=== PATIENT | male | born 1950 | race Caucasian/White ===

== ENCOUNTER 2020-05-20 14:28 | Inpatient (IN) | payer MEDICARE ==
[~2020-05-20] VITALS: Ht 182.9 cm; Wt 82.8 kg
--- NOTE | 2020-05-20 14:28 | NUR ---
PT SOFY FROM [facility] C/O LOW 02 SATS. PT IS AAOX2, NOT IN RESPIRATROY DISTRESS, O2 SAT 97% AT 2LPM. HOOKED TO GAS SYSTEM OPERATOR, KEPT RESTED AND COMFORTABLE. WILL CONTINUE TO MONITOR.
--- NOTE | 2020-05-20 14:55 | NUR ---
PT SEEN AND EXAMINED BY .
[2020-05-20] MEDS ORDERED: ALBUTEROL FS 2.5 MG/3 ML VIAL.NEB NEB ONE (15:00)
[2020-05-20] MEDS ORDERED: predniSONE 20 MG TABLET PO ONE (15:00)
[2020-05-20] MEDS ORDERED: IV NS 0.9% 500 ML BAG IV ONE (15:00)
--- NOTE | 2020-05-20 15:00 | NUR ---
IV LINE ESTABLISHED BLOOD DRAWN AND SENT TO LAB.
[2020-05-20] MEDS ORDERED: ALBUTEROL FS 2.5 MG/3 ML VIAL.NEB ONE (15:02)
--- NOTE | 2020-05-20 15:10 | NUR ---
RT AT BEDSIDE FOR BREATHING TX.
[2020-05-20] MEDS ORDERED: predniSONE 20 MG TABLET ONE (15:13)
[2020-05-20 15:14] LABS: BASOPHILS % (AUTO) 1.3 % (0.0-2.0); EOSINOPHILS % (AUTO) 0.3 % (0.0-6.0); HEMATOCRIT 39 % (39-51); HEMOGLOBIN 12.9 g/dL (13.5-17.5); LYMPHOCYTES # (AUTO) 0.4 /CMM (0.8-4.8); LYMPHOCYTES % (AUTO) 19.6 % (20.0-44.0); MEAN CORPUSCULAR HGB CONC 33 g/dl (31.0-36.0); MEAN CORPUSCULAR VOLUME 98 fL (80-96); MONOCYTES # (AUTO) 0.2 /CMM (0.1-1.30); MONOCYTES % (AUTO) 10.3 % (2.0-12.0); NEUTROPHILS # (AUTO) 1.6 /CMM (1.8-8.9); NEUTROPHILS % (AUTO) 68.5 % (43.0-81.0); PLATELET COUNT (AUTO) 230 /CMM (150-450); WHITE BLOOD COUNT (AUTO) 2.3 K/uL (4.3-11.0)
--- NOTE | 2020-05-20 15:20 | NUR ---
HOTEL MAINTENANCE TECHNICIAN AT BEDSIDE FOR XRAY.
[2020-05-20 15:22] LABS: CALCIUM, SERUM 8.4 mg/dL (8.5-10.1); CARBON DIOXIDE 28 mmol/L (21-32); CHLORIDE 97 mmol/L (98-107); CREATININE 1.8 mg/dL (0.6-1.3); GLUCOSE 91 mg/dL (74-106); POTASSIUM 3.9 mmol/L (3.5-5.1); SODIUM SERUM 133 mmol/L (136-145); UREA NITROGEN, BLOOD 34 mg/dL (7-18)
[2020-05-20 15:27] LABS: ALANINE AMINOTRANSFERASE 87 U/L (12-78); ALBUMIN 2.9 g/dL (3.4-5.0); ALKALINE PHOSPHATASE 83 U/L (46-116); ASPARTATE AMINOTRANSFERASE 98 U/L (15-37); BILIRUBIN,DIRECT 0.4 mg/dL (0.0-0.2); BILIRUBIN,TOTAL 0.7 mg/dL (0.2-1.0); LIPASE 251 U/L (73-393); TOTAL PROTEIN, SERUM 7.4 g/dL (6.4-8.2)
[2020-05-20] MEDS ORDERED: FINA5TAB11 PO (15:41)
[2020-05-20] MEDS ORDERED: BUPR-51 PO (15:41)
[2020-05-20] MEDS ORDERED: MAGN400O6 PO (15:41)
[2020-05-20] MEDS ORDERED: ZINC220C6 PO (15:41)
[2020-05-20] MEDS ORDERED: APIX5TAB4 PO (15:41)
[2020-05-20] MEDS ORDERED: ALBU8.5H8 IH (15:41)
[2020-05-20] MEDS ORDERED: BISA10SU11 RC (15:41)
[2020-05-20] MEDS ORDERED: BUDE10.2 IH (15:41)
[2020-05-20] MEDS ORDERED: QUET50TA PO (15:41)
[2020-05-20] MEDS ORDERED: ASCO500C17 PO (15:41)
[2020-05-20] MEDS ORDERED: THIA100T88 PO (15:41)
[2020-05-20] MEDS ORDERED: NA P133E RC (15:41)
[2020-05-20] MEDS ORDERED: ACET325T53 PO (15:41)
--- NOTE | 2020-05-20 15:54 | NUR ---
CALLED PHARMACU FOR IV ANTIBIOTIC.
--- NOTE | 2020-05-20 15:59 | NUR ---
PAGED [facility].
[2020-05-20] MEDS ORDERED: CEFEPIME 1 GM in IV D5W 50 ML IV ONE (16:00)
[2020-05-20] MEDS ORDERED: AZITHROMYCIN 500 MG in IV D5W 250 ML IV ONE (16:00)
--- NOTE | 2020-05-20 16:04 | NUR ---
CALLED NURSING SUP FOR TELE BED.
[2020-05-20] MEDS ORDERED: ACETAMINOPHEN 325 MG TABLET PO PRN (16:30)
[2020-05-20] MEDS ORDERED: Z GUARD REMEDY 2 OZ OINT TP PRN (16:30)
[2020-05-20] MEDS ORDERED: MAGNESIUM HYDROXIDE 30 ML UDC PO PRN ×2 (16:30)
[2020-05-20] MEDS ORDERED: ONDANSETRON HCL/PF 4 MG/2 ML VIAL IVP PRN (16:30)
[2020-05-20] MEDS ORDERED: MAG HYDROX/AL HYDROX/SIMETH 30 ML UDC PO PRN (16:30)
[2020-05-20] MEDS ORDERED: BISACODYL SUPP (10 MG) 10 MG/SUPP.RECT SUPP.RECT RC PRN (16:30)
[2020-05-20] MEDS ORDERED: HYDROCODONE/APAP 5/325MG TABLET PO PRN (16:30)
[2020-05-20] MEDS ORDERED: NA PHOS,M-B/NA PHOS,DI-BA 1 EA ENEMA RC PRN (16:30)
--- NOTE | 2020-05-20 17:33 | NUR ---
REPORT GIVEN TO NADEEM OLIVA FOR JOSEFINA.
[2020-05-20] MEDS ORDERED: ALBUTEROL FS 2.5 MG/3 ML VIAL.NEB IH PRN (18:00)
[2020-05-20] MEDS ORDERED: ZOSYN IVPB 3.375 G in IV D5W 50ml IV ONE (18:15)
[2020-05-20 18:20] VITALS: BP 109/78
--- NOTE | 2020-05-20 18:20 | NUR ---
ON CAR SUPERVISOR NOTES PATIENT ADMITTED FROM ER, REPORT GIVEN BY VON SILVER. NO ACUTE DISTRESS NOTES. BREATHING UNLABORED. NO SOB NOTED. ALERT ORIENTED X 3. ORIENTED TO THE ROOM . SAFETY MEASURES IN PLACE. SHOW HOW TO USE CALL LIGHT, PLACED WITHIN REACH. PLACED ON FIBERGLASS DOWEL DRAWING OPERATOR SINUS RHYTHM. NEEDS ATTENDED AND ANTICIPATED. WILL CONTINUE TO MONITOR ACCORDINGLY.
[2020-05-20] MEDS ORDERED: ALBUTEROL SULFATE 8 GM HFA.AER.AD IH PRN (18:30)
--- NOTE | 2020-05-20 18:55 | NUR ---
ASSOCIATE PROFESSOR OF COUNSELING NOTES PATIENT IN BED ALERT ORIENTED X 3 . NO ACUTE DISTRESS NOTED. BREATHING UNLABORED. NO SOB NOTED .IV ACCESS PATENT AND INTACT, NO REDNESS, NO SWELLING NOTED. NEEDS ATTENDED AND ANTICIPATED. SAFETY MEASURES IN PLACE. CALL LIGHT WITHIN REACH. WILL ENDORSE TO NIGHT NURSE FOR CONTINUITY OF CARE AND ADMISSION..
[2020-05-20] MEDS: APIXABAN 5 MG TABLET PO SCH (19:00)
[2020-05-20] MEDS: DEXAMETHASONE SOD PHOSPHATE 10 MG/ML VIAL IJ SCH (19:00)
--- NOTE | 2020-05-20 19:00 | NUR ---
BUSINESS QUALITY ASSURANCE ANALYST NOTES ZOSYN NOT AVAILABLE ON THE FLOOR YET, CALLED PHARMACY SPOKE WITH [facility], THEY WILL SEND MEDICATION. WILL ENDORSE TO NIGHT NURSE FOR ADMINISTRATION
--- NOTE | 2020-05-20 19:35 | NUR ---
TIN CAN LABORER: RECEIVED PATIENT Patient in bed, sleeping, arouses easily, respond verbally. Afib controlled HR 64 in the Tele monitor. Tolerating room air. Skin checked done, fern elbow skin tear, coccyx blanchable redness. Fall; skin precaution maintained.
[2020-05-20] MEDS: QUETIAPINE FUMARATE 25 MG TABLET PO SCH (21:49)
--- NOTE | 2020-05-20 21:49 | NUR ---
REFUSED SEROQUEL Spit out due medication Seroquel, declined education.
[2020-05-20 22:46] VITALS: BP 97/56
[2020-05-21] MEDS: PIPERACILLIN /TAZOBACTAM 3.375 G in IV D5W 100 ML IV SCH ×4 (00:38→22:44)
[2020-05-21 02:18] VITALS: BP 90/53
--- NOTE | 2020-05-21 03:57 | NUR ---
VTE SCORE 4 Chemical prophylaxis reviewed with MELECIO Gaytan with no new orders at this time, per MELECIO Gaytan patient is already on anticoagulant Eliquis.
[2020-05-21 05:10] VITALS: BP 110/65
[2020-05-21 05:11] VITALS: BP 110/65
--- NOTE | 2020-05-21 06:36 | NUR ---
PANCAKE PROFESSIONAL: END OF SHIFT REPORT Patient in bed, A/O x1 to self only with confusion. Afib controlled HR 61 in the Tele monitor. On IV Zosyn, afebrile. Patient is uncooperative with hygiene, skin precaution maintained. Awaits wound consult. Covid PCR pending result. Will endorse to oncoming RN.
[2020-05-21 07:27] LABS: BASOPHILS % (AUTO) 0.4 % (0.0-2.0); EOSINOPHILS % (AUTO) 0.1 % (0.0-6.0); HEMATOCRIT 39 % (39-51); HEMOGLOBIN 12.9 g/dL (13.5-17.5); LYMPHOCYTES # (AUTO) 0.3 /CMM (0.8-4.8); LYMPHOCYTES % (AUTO) 32.2 % (20.0-44.0); MEAN CORPUSCULAR HGB CONC 33 g/dl (31.0-36.0); MEAN CORPUSCULAR VOLUME 97 fL (80-96); MONOCYTES # (AUTO) 0.1 /CMM (0.1-1.30); MONOCYTES % (AUTO) 13.1 % (2.0-12.0); NEUTROPHILS # (AUTO) 0.5 /CMM (1.8-8.9); NEUTROPHILS % (AUTO) 54.2 % (43.0-81.0); PLATELET COUNT (AUTO) 235 /CMM (150-450); RED BLOOD CELL COUNT(AUTO) 4.02 MIL/uL (4.5-6.0)
--- NOTE | 2020-05-21 07:30 | NUR ---
RN NOTE THE PATIENT IS RECEIVED IN BED. THE PATIENT IS ALERT AND ORIENTED TO SELF. ABLE TO MAKE NEEDS KNOWN VERBALLY. DENIES PAIN. PATIENT IS IN ROOM AIR AND DENIES SOB. RESPIRATION REGULAR AND UNLABORED. TELE BOX READING IS AFIB 63. LFA G 20 PATENT AND SALINE LOCKED. BED LOW AND LOCKED. SIDE RAILS UP X3. CALL LIGHT WITHIN REACH. WILL CONTINUE TO MONITOR.
[2020-05-21 07:32] LABS: C-REACTIVE PROTEIN 9.4 mg/dL (0.0-0.9)
[2020-05-21 07:52] LABS: WHITE BLOOD COUNT (AUTO) 0.9 K/uL (4.3-11.0)
[2020-05-21 08:26] LABS: POTASSIUM 4.2 mmol/L (3.5-5.1)
[2020-05-21 08:27] LABS: CALCIUM, SERUM 8.3 mg/dL (8.5-10.1); CREATININE 1.5 mg/dL (0.6-1.3); MAGNESIUM 2.3 mg/dL (1.8-2.4)
[2020-05-21] MEDS: ASCORBIC ACID 500 MG TABLET PO SCH ×2 (08:27→16:24)
[2020-05-21] MEDS: FINASTERIDE (5 MG) 5 MG TABLET PO SCH (08:27)
[2020-05-21] MEDS: DEXAMETHASONE SOD PHOSPHATE 10 MG/ML VIAL IJ SCH (08:28)
[2020-05-21] MEDS: APIXABAN 5 MG TABLET PO SCH ×2 (08:28→16:32)
[2020-05-21] MEDS: ZINC SULFATE 220 MG CAPSULE PO SCH (08:28)
[2020-05-21] MEDS: THIAMINE HCL 100 MG TABLET PO SCH (09:43)
--- NOTE | 2020-05-21 09:43 | NUR ---
RN NOTE THIAMINE 100 MG PO IS GIVEN BUT NOT SCANNED VIA SCANNER BECAUSE THE BARCODE WAS FADED AND THE SCANNER WAS NOT SCANNING.
--- NOTE | 2020-05-21 09:44 | NUR ---
RN NOTE WELLBUTRIN XL 150 MG DUE AT 0900 IS NOT ADMINISTERED YET BECAUSE THE PHARMACY HAS NOT DELIVERED IT YET. FOLLOW UP CALL TO PHARMACY IS MADE.
[2020-05-21 09:52] LABS: BAND % (MANUAL) 2 % (0.0-5.0); LYMPHOCYTES % (MANUAL) 38 % (16-48); MONOCYTES % (MANUAL) 12 % (0-11.0); NEUTROPHILS % (MANUAL) 48 (42-76)
[2020-05-21] MEDS: FLUTICASONE/VILANTEROL 1 EACH BLST.W.DEV IH SCH (09:55)
[2020-05-21] MEDS: BUPROPION XL 150 MG TAB.ER.24 PO SCH (09:56)
--- NOTE | 2020-05-21 10:17 | NUR ---
WOUND CARAE CONSULT: PT PRESENTS WITH BILATERAL ELBOW SKIN TEARS, DRY SCABS TO TOES AND DRY WOUND TO LEFT HEEL, ALL PRESENT ON ADMISSION. PT STATES HEEL WOUND HAS BEEN THERE FOR A LONG TIME. RECOMMEND DPM CONSULT. DR WISE NOTIFIED OF CONSULT REQUEST. RECOMMENDATIONS MADE FOR WOUND CARE AND SKIN PROTECTION. PT IS CONTINENT AND INDEPENDENT WITH BED MOBILITY AT THIS TIME. Addendum: 05/21/20 at 1019 by JORGE TOBIAS WNDNU Amended: Links added.
--- NOTE | 2020-05-21 10:32 | NUR ---
RN NOTE RECEIVED AN ORDER FROM DR LIANG TO ADMINISTER FLU VACCINE. THE ORDER IS READ BACK, VERIFIED. NOTED AND CARRIED OUT.
[2020-05-21] MEDS: ALBUTEROL HALF STRENGTH 1.25 MG/3 ML VIAL.NEB NEB SCH ×4 (12:00→22:43)
[2020-05-21] MEDS: IPRATROPIUM NEB FS 0.5 MG/2.5 ML AMPUL.NEB NEB SCH ×4 (12:00→22:43)
--- NOTE | 2020-05-21 12:10 | NUR ---
RN NOTES RECEIVED PATIENT FROM SAM RN VIA HOSPITAL BED FROM [facility], BEDSIDE REPORT GIVEN. NO SIGNS OF DISTRESS NOTED AT THIS TIME. WILL CONTINUE TO MONITOR.
[2020-05-21] MEDS ORDERED: INFLUENZA VACCINE 2020-21 0.5 ML DISP.SYRIN IM ONE (12:30)
[2020-05-21] MEDS: methylPREDNISolone SOD SUCC 125 MG/2ML VIAL IV SCH ×3 (12:46→20:37)
[2020-05-21 13:00] VITALS: BP 110/70
--- NOTE | 2020-05-21 13:42 | NUR ---
RN NOTES CALLED [facility], THEY GAVE FLU VACCINE 05/18/20.
[2020-05-21 17:58] VITALS: BP 111/67
--- NOTE | 2020-05-21 18:28 | NUR ---
RN NOTES PATIENT IN BED RESTING COMFORTABLY IN MODERATE HIGH BACK REST. A/O X2-3. PERIODS OF CONFUSION. ON 2LPM VIA NC, TOLERATING WELL. NO SIGNS OF DISTRESS NOTED. IV ACCESS ON LFA# 20, PATENT AND INTACT. SAFETY MEASURES IN PLACE, BED IN LOWEST LOCKED POSITION WITH SIDE RAILS UP X2. CALL LIGHT WITHIN EASY REACH. WILL ENDORSE TO PRINTING PRESSMAN NURSE FOR JOSEFINA.
[2020-05-21 18:42] LABS: BILIRUBIN,URINE NEGATIVE (NEGATIVE); BLOOD, URINE NEGATIVE Ery/uL (NEGATIVE); COLOR,URINE YELLOW (YELLOW); LEUKOCYTE ESTERASE ,URINE NEGATIVE (NEGATIVE); NITRITE, URINE NEGATIVE (NEGATIVE); PROTEIN,URINE TRACE mg/dl (NEGATIVE); UGLUCOSE NEGATIVE (NEGATIVE); UROBILINOGEN,URINE 0.2 EU/dL (0.2)
[2020-05-21 18:56] LABS: BACTERIA,URINE None seen /HPF (None Seen); RBC,URINE 0-2 /HPF (0-2); SQUAMOUS EPITHELIAL CELL,UR 0-2 /HPF (None Seen); WBC,URINE 0-2 /HPF (0-3)
[2020-05-21 19:27] LABS: CREATININE, URINE 133.3 MG/DL (30.0-125.0); URINE TOTAL PROTEIN 63.7 mg/dL (0-11.9)
[2020-05-21 19:36] LABS: EOSINOPHIL,URINE None Seen
[2020-05-21 20:00] VITALS: BP 91/56
[2020-05-21] MEDS: QUETIAPINE FUMARATE 25 MG TABLET PO SCH (20:38)
[2020-05-22] VITALS: BP 95/60
--- NOTE | 2020-05-22 02:20 | NUR ---
RN notes Received patient awake resting comfortably in bed watching TV with no distress noted. Breathing even and unlabored. O2 at 3lpm via nasal cannula tolerating well. No complaint of pain or discomfort. Alert with episodes of confusion and disorientation. Able to verbalize needs. Cooperative. Needs attended. Kept clean and dry. Will endorse to next shift for continuity of care.
[2020-05-22] MEDS: IPRATROPIUM NEB FS 0.5 MG/2.5 ML AMPUL.NEB NEB SCH ×6 (03:05→23:30)
[2020-05-22] MEDS: ALBUTEROL HALF STRENGTH 1.25 MG/3 ML VIAL.NEB NEB SCH ×6 (03:05→23:30)
[2020-05-22 04:00] VITALS: BP 102/64
[2020-05-22 06:41] LABS: BASOPHILS % (AUTO) 0.1 % (0.0-2.0); HEMATOCRIT 37 % (39-51); HEMOGLOBIN 12.3 g/dL (13.5-17.5); LYMPHOCYTES # (AUTO) 0.3 /CMM (0.8-4.8); LYMPHOCYTES % (AUTO) 9.4 % (20.0-44.0); MEAN CORPUSCULAR HGB CONC 33 g/dl (31.0-36.0); MEAN CORPUSCULAR VOLUME 96 fL (80-96); MONOCYTES # (AUTO) 0.2 /CMM (0.1-1.30); MONOCYTES % (AUTO) 7.4 % (2.0-12.0); NEUTROPHILS # (AUTO) 2.5 /CMM (1.8-8.9); NEUTROPHILS % (AUTO) 83.1 % (43.0-81.0); PLATELET COUNT (AUTO) 273 /CMM (150-450); RED BLOOD CELL COUNT(AUTO) 3.83 MIL/uL (4.5-6.0)
[2020-05-22 07:04] LABS: ALBUMIN 2.5 g/dL (3.4-5.0); BILIRUBIN,TOTAL 0.5 mg/dL (0.2-1.0); CALCIUM, SERUM 8.1 mg/dL (8.5-10.1); CREATININE 1.4 mg/dL (0.6-1.3); MAGNESIUM 2.3 mg/dL (1.8-2.4); PHOSPHORUS 3.4 mg/dL (2.5-4.9); POTASSIUM 3.3 mmol/L (3.5-5.1); TOTAL PROTEIN, SERUM 6.7 g/dL (6.4-8.2)
--- NOTE | 2020-05-22 07:30 | NUR ---
CHARACTER ARTIST AM NOTE RECEIVED PATIENT IN BED, ALERT AND ORIENTED TO SELF. ABLE TO MAKE NEEDS KNOWN VERBALLY. ON 3 LPM OXYGEN NASAL CANULA, NOT IN ANY DISTRESS, NO SOB, RESPIRATION UNLABORED. AFIB CONTROLLED ON MONITOR., DENIES PAIN OR DISCOMFORT, LFA G 20 IV ACCESS, FLUSHES WELL, SITE CLEAR. SEE NURSING FLOWHSEET FOR SKIN ISSUES. REGULAR DIET. BED REST FOR NOW, UNSTEADY GAIT. BED LOW AND LOCKED. SIDE RAILS UP X2. CALL LIGHT WITHIN REACH. WILL CONTINUE TO MONITOR.
[2020-05-22 08:00] VITALS: BP 112/72
[2020-05-22] MEDS ORDERED: POTASSIUM CHLORIDE 20 MEQ TAB.PRT.SR PO ONE (08:00)
[2020-05-22] MEDS: PIPERACILLIN /TAZOBACTAM 3.375 G in IV D5W 100 ML IV SCH ×3 (08:27→23:43)
[2020-05-22] MEDS: methylPREDNISolone SOD SUCC 125 MG/2ML VIAL IV SCH ×4 (08:28→21:03)
[2020-05-22] MEDS: ZINC SULFATE 220 MG CAPSULE PO SCH (08:33)
[2020-05-22] MEDS: BUPROPION XL 150 MG TAB.ER.24 PO SCH (08:33)
[2020-05-22] MEDS: FLUTICASONE/VILANTEROL 1 EACH BLST.W.DEV IH SCH (08:34)
[2020-05-22] MEDS: ASCORBIC ACID 500 MG TABLET PO SCH ×2 (08:34→16:30)
[2020-05-22] MEDS: THIAMINE HCL 100 MG TABLET PO SCH (08:35)
[2020-05-22] MEDS: FINASTERIDE (5 MG) 5 MG TABLET PO SCH (08:35)
[2020-05-22] MEDS: APIXABAN 5 MG TABLET PO SCH ×2 (08:37→16:31)
--- NOTE | 2020-05-22 09:30 | NUR ---
RN NOTES DUE MEDS GIVEN
--- NOTE | 2020-05-22 10:40 | NUR ---
RN NOTES DR. LIANG AT BEDSIDE.
[2020-05-22 13:00] VITALS: BP 124/69
[2020-05-22 16:00] VITALS: BP 123/70
--- NOTE | 2020-05-22 18:26 | NUR ---
NETTING WEAVER CLOSING NOTE PATIENT IN BED, ALERT AND ORIENTED TO SELF. ABLE TO MAKE NEEDS KNOWN VERBALLY. ON 3 LPM OXYGEN NASAL CANULA, NOT IN ANY DISTRESS, NO SOB, RESPIRATION UNLABORED. AFIB CONTROLLED ON MONITOR., DENIES PAIN OR DISCOMFORT, LFA G 20 IV ACCESS, FLUSHES WELL, SITE CLEAR. REGULAR DIET. BED REST FOR NOW, UNSTEADY GAIT. BED LOW AND LOCKED. SIDE RAILS UP X2. CALL LIGHT WITHIN REACH. PM CARE DONE EARLIER, ALL NEEDS MET, NO OTHER SIGNIFICANT CHANGE IN CONDITION. WILL ENDORSE TO NEXT SHIFT FOR JOSEFINA.
--- NOTE | 2020-05-22 19:59 | NUR ---
RT pt refused neb tx at this time. notified yuli lin. no sob. no resp distress. will continue to monitor pt
[2020-05-22 20:00] VITALS: BP 130/69
--- NOTE | 2020-05-22 20:00 | NUR ---
STEWARD RACETRACK OPENING NOTES RECEIVED PATIENT IN BED, AWAKE, COOPERATIVE, A/O X1, CONFUSED, O2 @3LPM VIA NASAL CANNULA, UNLABORED BREATHING, NO SIGNS OF RESPIRATORY DISTRESS AT THIS TIME, RFA # 20 NS TKO, NO COMPLAINTS OF PAIN AT THIS TIME, WILL CONTINUE TO MONITOR.
[2020-05-22] MEDS: QUETIAPINE FUMARATE 25 MG TABLET PO SCH (21:03)
[2020-05-23] VITALS: BP 114/72
[2020-05-23] MEDS: ALBUTEROL HALF STRENGTH 1.25 MG/3 ML VIAL.NEB NEB SCH ×3 (03:30→10:35)
[2020-05-23] MEDS: IPRATROPIUM NEB FS 0.5 MG/2.5 ML AMPUL.NEB NEB SCH ×3 (03:30→10:36)
[2020-05-23 04:10] VITALS: BP 118/82
[2020-05-23 06:32] LABS: BASOPHILS % (AUTO) 0.3 % (0.0-2.0); HEMATOCRIT 36 % (39-51); HEMOGLOBIN 12.2 g/dL (13.5-17.5); LYMPHOCYTES # (AUTO) 0.3 /CMM (0.8-4.8); MEAN CORPUSCULAR HGB CONC 34 g/dl (31.0-36.0); MEAN CORPUSCULAR VOLUME 96 fL (80-96); MONOCYTES # (AUTO) 0.3 /CMM (0.1-1.30); MONOCYTES % (AUTO) 5.6 % (2.0-12.0); NEUTROPHILS % (AUTO) 87.1 % (43.0-81.0); PLATELET COUNT (AUTO) 259 /CMM (150-450); RED BLOOD CELL COUNT(AUTO) 3.74 MIL/uL (4.5-6.0); WHITE BLOOD COUNT (AUTO) 4.6 K/uL (4.3-11.0)
--- NOTE | 2020-05-23 06:35 | NUR ---
SENIOR INTERIOR DESIGNER CLOSING NOTES ENDORSED PATIENT TO AM SHIFT NURSE IN BED, AWAKE, A/0 X 1, CONFUSED, NO SIGNS OF RESPIRATORY DISTRESS, NO CARDIAC DISTRESS NOTED AT THIS TIME, DUE MEDS GIVEN, ASSISTED PATIENT NEEDED, SIDE RAILS UP FOR SAFETY.
[2020-05-23 07:00] LABS: CALCIUM, SERUM 8.2 mg/dL (8.5-10.1); CREATININE 1.2 mg/dL (0.6-1.3); MAGNESIUM 2.2 mg/dL (1.8-2.4); PHOSPHORUS 2.5 mg/dL (2.5-4.9); POTASSIUM 3.6 mmol/L (3.5-5.1)
--- NOTE | 2020-05-23 07:30 | NUR ---
FOCUSER AM NOTE RECEIVED PATIENT IN BED, ALERT AND ORIENTED TO SELF. ABLE TO MAKE NEEDS KNOWN VERBALLY. ON 3 LPM OXYGEN NASAL CANULA, NOT IN ANY DISTRESS, NO SOB, RESPIRATION UNLABORED. NOW SINUS RHYTHM ON MONITOR., DENIES PAIN OR DISCOMFORT, LFA G 20 IV ACCESS, FLUSHES WELL, SITE CLEAR. SEE NURSING FLOWSHEET FOR SKIN ISSUES. REGULAR DIET. BED REST FOR NOW, UNSTEADY GAIT. BED LOW AND LOCKED. SIDE RAILS UP X2. CALL LIGHT WITHIN REACH. WILL CONTINUE TO MONITOR.
[2020-05-23 08:00] VITALS: BP 131/76
[2020-05-23] MEDS: ASCORBIC ACID 500 MG TABLET PO SCH (08:17)
[2020-05-23] MEDS: methylPREDNISolone SOD SUCC 125 MG/2ML VIAL IV SCH ×2 (08:17→13:35)
[2020-05-23] MEDS: PIPERACILLIN /TAZOBACTAM 3.375 G in IV D5W 100 ML IV SCH (08:17)
[2020-05-23] MEDS: THIAMINE HCL 100 MG TABLET PO SCH (08:18)
[2020-05-23] MEDS: FINASTERIDE (5 MG) 5 MG TABLET PO SCH (08:18)
[2020-05-23] MEDS: ZINC SULFATE 220 MG CAPSULE PO SCH (08:18)
[2020-05-23] MEDS: BUPROPION XL 150 MG TAB.ER.24 PO SCH (08:18)
[2020-05-23] MEDS: APIXABAN 5 MG TABLET PO SCH (08:22)
[2020-05-23] MEDS: FLUTICASONE/VILANTEROL 1 EACH BLST.W.DEV IH SCH (08:24)
[2020-05-23 09:09] LABS: PTH, INTACT 21 pg/mL (15-65)
[2020-05-23] MEDS ORDERED: LEVO500T90 PO (09:17)
[2020-05-23] MEDS ORDERED: PRED50TA PO (09:17)
--- NOTE | 2020-05-23 09:30 | NUR ---
RN NOTES DUE MEDS GIVEN
[2020-05-23] MEDS ORDERED: PNEUMOCOCCAL 23-VAL P-SAC VAC 0.5 ML VIAL IM ONE (11:00)
[2020-05-23 12:00] VITALS: BP 116/74
--- NOTE | 2020-05-23 14:30 | NUR ---
CHANNEL PARTNERS NOTES PATIENT DISCHARGED TO [facility] TODAY PER MD IN STABLE CONDITION. PROVIDED DC INSTRUCTIONS, MED RECON LIST AND HEALTH TEACHINGS. PT TO FOLLOW UP WITH PCP IN 1-2 WEEKS OR PER FACILITY PROTOCOL. IV ACCESS TO LEFT FA REMOVED, CATHETER TIP COMPLETE, APPLIED PRESSURE, DRESSING IN PLACE. NO BELONGINGS, ALL PAPER WORKS SIGNED, PATIENT REFUSED TO HAVE PICTURES OF SKIN ISSUES TAKEN, DESPITE EXPLAINING HOSPITAL PROTOCOL, STATED" IT DOES NOT MATTER". PATIENT PICKED UP BY 2 AMBULANCE CREW AFTER REPORT GIVEN AND WILL TRANSPORT PATIENT TO FACILITY. REPORT GIVEN TO [facility] STAFF EARLIER.
[2020-05-24 12:06] LABS: *SPE A/G RATIO 0.8 (0.7-1.7); *SPE ALBUMIN 2.7 g/dL (2.9-4.4); *SPE ALPHA-1-GLOBULIN 0.3 g/dL (0.0-0.4); *SPE ALPHA-2-GLOBULIN 0.9 g/dL (0.4-1.0); *SPE GLOBULIN, TOTAL 3.6 g/dL (2.2-3.9); *SPE M-SPIKE Not Observed g/dL (Not Observed); *SPEGAMMA GLOBULIN 1.4 g/dL (0.4-1.8)
== END 2020-05-23 14:30 | DRG 193 ==
LOC: ER 14:30 → TELE-TD 17:25 → TELE2 18:52 → TELE1 05-21 11:20
PROVIDERS: ADMIT Internal Medicine; ATTEND Internal Medicine
DX: J15.9 Unspecified bacterial pneumonia (principal); N17.0 Acute kidney failure with tubular necrosis; E43 Unspecified severe protein-calorie malnutrition; J96.01 Acute respiratory failure with hypoxia; J44.1 Chronic obstructive pulmonary disease with (acute) exacerbation; G93.40 Encephalopathy, unspecified; E87.1 Hypo-osmolality and hyponatremia; J44.0 Chronic obstructive pulmonary disease with (acute) lower respiratory infection; I12.9 Hypertensive chronic kidney disease with stage 1 through stage 4 chronic kidney disease, or unspecified chronic kidney disease; N18.9 Chronic kidney disease, unspecified; J44.9 Chronic obstructive pulmonary disease, unspecified; G89.4 Chronic pain syndrome; N40.0 Benign prostatic hyperplasia without lower urinary tract symptoms; F41.9 Anxiety disorder, unspecified; F32.9 Major depressive disorder, single episode, unspecified; F20.9 Schizophrenia, unspecified; Z74.09 Other reduced mobility; Z79.51 Long term (current) use of inhaled steroids; Z79.899 Other long term (current) drug therapy; Z91.81 History of falling; I48.0 Paroxysmal atrial fibrillation; F29 Unspecified psychosis not due to a substance or known physiological condition; L89.616 Pressure-induced deep tissue damage of right heel; L89.896 Pressure-induced deep tissue damage of other site; M20.41 Other hammer toe(s) (acquired), right foot; M20.42 Other hammer toe(s) (acquired), left foot; R26.9 Unspecified abnormalities of gait and mobility; F39 Unspecified mood [affective] disorder; Z74.01 Bed confinement status; G83.10 Monoplegia of lower limb affecting unspecified side; E86.1 Hypovolemia; F17.200 Nicotine dependence, unspecified, uncomplicated; B34.9 Viral infection, unspecified
CPT/HCPCS: 36415; 71045-TC; 76770-TC; 80048-TC; 80053-TC; 80076-TC; 81001; 82550-TC; 82570-TC; 83690-TC; 83735-TC; 83970; 84100-TC; 84155; 84155-TC; 84165; 84300-TC; 84484-TC; 85025-TC; 86140-TC; 87040-TC; 87081-TC; 94799-TC; C9803; G0378; J0692; J1100; J2543; J2930; J7040; J7060; U0003